=== PATIENT | male | born 1965 | race Caucasian/White ===

== ENCOUNTER 2017-05-13 09:09 | Emergency (ER) | payer OTHER ==
[~2017-05-13 09:09] MED LIST: CIPRO500 MG PO; COZAAR50 MG PO; FLOMAX0.4 MG PO; HYDROCODON-ACE1 EAC6 PO; IBUPROFEN400 MG PO; PROSCAR5 MG PO; TYLENOL325 MG PO; VALIUM10 MG PO; ZOLOFT100 MG PO
== END 2017-05-13 11:45 | disposition home or self-care (01) ==
LOC: ER 09:09
DX: E86.0 Dehydration (principal); I10 Essential (primary) hypertension; Z87.442 Personal history of urinary calculi; Z90.49 Acquired absence of other specified parts of digestive tract; Z79.899 Other long term (current) drug therapy; Z79.82 Long term (current) use of aspirin
CPT/HCPCS: 36415; 96360; 96361